=== PATIENT | female | born 1995 | race Caucasian/White ===

== ENCOUNTER → 2018-03-23 | Outpatient (CLI) | payer BC, OTHER ==
[~2018-03-23] VITALS: Ht 170.2 cm; Wt 80.7 kg
[~2018-03-23] MED LIST: ACID REDUCER150 MG PO; ASMANEX TW200 MICRO1 IH; CITALOPRAM HBR10 MG PO; EXCEDRIN MIGRA1 EAC3 PO; NORCO 5/3251 TABLET PO; PAMELOR25 MG PO
== END | disposition home or self-care (01) ==
LOC: AMB 07:26
PROC: 0DB68ZX Excision of Stomach, Via Natural or Artificial Opening Endoscopic, Diagnostic (ICD-10-PCS; principal; 2018-03-23)
DX: K29.70 Gastritis, unspecified, without bleeding (principal); K21.9 Gastro-esophageal reflux disease without esophagitis; J45.909 Unspecified asthma, uncomplicated; Z79.82 Long term (current) use of aspirin
CPT/HCPCS: 88305; 88342 TC; J2250